=== PATIENT | male | born 1965 | race Caucasian/White ===

== ENCOUNTER 2020-06-24 18:26 | Emergency (ER) | payer OTHER ==
[2020-06-24] MEDS ORDERED: Lidocaine 1% with EPINEPHrine 1:100,000 10 ML MDV INJECT ONE (18:39)
[2020-06-24] MEDS ORDERED: Diphtheria,Pertussis(Acell),Tetanus Vaccine 0.5 ML Syringe IM ONE (18:42)
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
[2020-06-24] MEDS ORDERED: Lidocaine 1% with EPINEPHrine 1:100,000 20 ML MDV ONE (18:56)
[2020-06-24] MEDS ORDERED: Lidocaine 1% with EPINEPHrine 1:100,000 20 ML MDV INJECT ONE (19:08)
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
[2020-06-24] MEDS ORDERED: Ibuprofen 600 MG Tab PO ONE (20:06)
[2020-06-24] MEDS ORDERED: Cephalexin 500 MG Cap PO ONE (20:06)
== END 2020-06-24 20:21 | disposition home or self-care (01) ==
LOC: MW.ED 18:29
DX: S02.40DA Maxillary fracture, left side, initial encounter for closed fracture (principal); S01.81XA Laceration without foreign body of other part of head, initial encounter; Z23 Encounter for immunization; W55.22XA Struck by cow, initial encounter; Y99.0 Civilian activity done for income or pay
CPT/HCPCS: 12015; 70450; 70486; 72125; 90471; 99284; A9270

== ENCOUNTER 2022-02-23 13:40 | Emergency (ER) | payer OTHER | END 2022-02-23 15:33 | disposition home or self-care (01) | LOC: MW.ED 13:40 | DX: S49.91XA Unspecified injury of right shoulder and upper arm, initial encounter (principal); Z79.899 Other long term (current) drug therapy; W22.8XXA Striking against or struck by other objects, initial encounter | CPT/HCPCS: 73030-26-RT; 73030-RT; 99283 ==